=== PATIENT | male | born 1990 | race Caucasian/White ===

== ENCOUNTER 2019-11-28 16:40 | Emergency (ER) | payer OTHER, MEDICAID ==
[~2019-11-28] VITALS: Ht 195.6 cm; Wt 181.4 kg
[~2019-11-28 16:40] MED LIST: HYDROCODONE-AP1 EAC6 PO; NAPROSYN500 MG PO; NORCO 5-325 TA1 EACH PO
[2019-11-28] MEDS ORDERED: AMBIEN 10 MG TA10 MG PO (16:58)
[2019-11-28] MEDS ORDERED: XANAX 0.5 MG0.5 M1 PO (16:58)
[2019-11-28] MEDS ORDERED: TIZANIDINE HCL2 M1 PO (16:58)
[2019-11-28] MEDS ORDERED: SEROQUEL200 MG PO (16:58)
[2019-11-28] MEDS ORDERED: VICODIN HP 10-1 EAC1 PO (16:59)
[2019-11-28 18:02] VITALS: BP 154/111
== END 2019-11-28 18:02 | disposition home or self-care (01) ==
LOC: M.ERS 16:40
DX: S30.0XXA Contusion of lower back and pelvis, initial encounter (principal); F17.210 Nicotine dependence, cigarettes, uncomplicated; W11.XXXA Fall on and from ladder, initial encounter; Y93.89 Activity, other specified; Y92.89 Other specified places as the place of occurrence of the external cause; Y99.8 Other external cause status